=== PATIENT | male | born 1960 | race Caucasian/White ===

== ENCOUNTER 2016-12-05 09:19 | Emergency (ER) | payer MEDICAID ==
[~2016-12-05] VITALS: Ht 165.1 cm; Wt 90.0 kg
[2016-12-05] MEDS ORDERED: MIRT15TA PO (09:45)
[2016-12-05] MEDS ORDERED: IBUPROFEN 600MG TABLET PO ONE (13:15)
[2016-12-05 13:17] VITALS: BP 129/91
== END 2016-12-05 13:58 | disposition home or self-care (01) ==
LOC: ER 09:24
DX: S09.8XXA Other specified injuries of head, initial encounter (principal); M54.2 Cervicalgia; M54.9 Dorsalgia, unspecified; F41.9 Anxiety disorder, unspecified; Z90.49 Acquired absence of other specified parts of digestive tract; V79.88XA Bus occupant (driver) (passenger) injured in other specified transport accidents, initial encounter; Y93.89 Activity, other specified; Y92.89 Other specified places as the place of occurrence of the external cause; Y99.8 Other external cause status
CPT/HCPCS: 70450; 72125; 99284